=== PATIENT | female | born 1985 | race Caucasian/White ===

== ENCOUNTER 2016-09-16 11:00 | Outpatient (RCR) | payer BC, MEDICARE ==
[~2016-09-16 11:00] MED LIST: ACETAMINOPHEN W1 TA6 PO; ACIPHEX20 MG PO; AMOXICILLIN 8751 TAB PO; ATIVAN 0.50.5 MG/TAB PO; ATOMOXETINE; BACTRIM DS 8001 TAB PO; CARDI-OMEGA1000 MG PO; COLACE 100100 MG/CAP PO; CYMBALTA; DESYREL 100MG100 MG PO; DILAUDID 2MG TAB2 MG; FISH OIL500 MG PO; GLUCOPHAGE500 MG/TAB PO; KLONOPIN 0.5MG0.5 MG PO; LAMICTAL150 MG PO; LORTAB 5/500 501 TAB PO; MAXALT MLT5 MG PO; MEDROL 4MG DOSPA4 MG PO; METOPROLOL25 MG PO; MIRALAX 17GM PK1 PKT PO; MS CONTIN15 MG PO; MULTIPLE VITAMI1 CAP PO; NO HOME MEDICATIONS; NORCO 325 MG-51 TAB PO; NORCO 325 MG-7.1 TAB PO; NUVARING VAG RING VG; OXYCODONE5 M1 PO; PHENERGAN 25 TA25 MG PO; PHENERGAN W/CO120 ML PO; PHENERGAN25 MG RC; PRENATAL1 TA3 PO; PRISTIQ 50 MG T50 MG PO; PROCTOFOAM; PROTONIX 40MG T40 MG PO; TOPAKAX; TOPAKAX PO; TOPAMAX50 MG PO; TRAZODO50 MG PO; VITAMIN B COMPL1 SGL PO; XOPENEX HF0.045 MG/A IH; ZOFRAN 4MG T4 MG/TAB PO; [UNRECOGNIZED DRUG - OTHER] PO
[2016-10-21] MEDS ORDERED: LINZESS145CAP PO (09:09)
[2016-10-21] MEDS ORDERED: ZANAFLEX2 MG PO (09:11)
[2016-12-10] MEDS ORDERED: MAGNESIUM CITR100 MG PO (13:31)
[2016-12-10] MEDS ORDERED: VITAMIN D1000 IU PO (13:31)
[2016-12-10] MEDS ORDERED: PHENTERMINE15 MG PO (14:05)
[2016-12-24] MEDS ORDERED: FASTIN30 MG PO (13:43)
== END 2016-09-17 | disposition still patient (30) ==
LOC: MKS.ESL.PT
DX: S56.912D Strain of unspecified muscles, fascia and tendons at forearm level, left arm, subsequent encounter (principal); X58.XXXD Exposure to other specified factors, subsequent encounter; Y93.41 Activity, dancing
CPT/HCPCS: G8978-GP; G8979-GP

== ENCOUNTER → 2016-10-21 | Outpatient (CLI) | payer BC, MEDICARE ==
[~2016-10-21] VITALS: Ht 152.4 cm; Wt 74.8 kg
[~2016-10-21] MED LIST changes: +ALEVE 220MG220 MG PO; +ANUSOL HC CREAM30 GM TP; +ATARAX 25MG25 MG/TAB PO; +BELSOMRA10 MG PO; +BRINTELLIX5 PO; +DESYREL 50MG50 MG PO; +FASTIN30 MG PO; +LINZESS145CAP PO; +MAGNESIUM CITR100 MG PO; +PHENTERMINE15 MG PO; +STRATTERA 40MG40 MG PO; +VITAMIN D1000 IU PO; +ZANAFLEX2 MG PO; +ZYRTEC 10MG10 MG PO
[2016-10-21 09:12] VITALS: BP 126/79; PULSE 85
[2016-10-21 12:26] VITALS: BP 126/79; PULSE 85
== END ==
LOC: LIGHT 10-07 15:26
DX: F50.89 Other specified eating disorder (principal); F33.8 Other recurrent depressive disorders; E66.09 Other obesity due to excess calories; E28.2 Polycystic ovarian syndrome; Z68.32 Body mass index [BMI] 32.0-32.9, adult

== ENCOUNTER → 2016-10-28 | Outpatient (CLI) | payer BC, MEDICARE | LOC: BHSO 11:22 | DX: F33.1 Major depressive disorder, recurrent, moderate (principal) ==

== ENCOUNTER 2016-11-10 10:45 | Outpatient (RCR) | payer BC, MEDICARE ==
[~2016-11-10 10:45] MED LIST changes: -ALEVE 220MG220 MG PO; -ANUSOL HC CREAM30 GM TP; -ATARAX 25MG25 MG/TAB PO; -BELSOMRA10 MG PO; -BRINTELLIX5 PO; -DESYREL 50MG50 MG PO; -FASTIN30 MG PO; -MAGNESIUM CITR100 MG PO; -PHENTERMINE15 MG PO; -STRATTERA 40MG40 MG PO; -VITAMIN D1000 IU PO; -ZYRTEC 10MG10 MG PO
[2016-12-10] MEDS ORDERED: MAGNESIUM CITR100 MG PO (13:31)
[2016-12-10] MEDS ORDERED: VITAMIN D1000 IU PO (13:31)
[2016-12-10] MEDS ORDERED: PHENTERMINE15 MG PO (14:05)
[2016-12-24] MEDS ORDERED: FASTIN30 MG PO (13:43)
== END 2016-11-11 11:41 | disposition home or self-care (01) ==
LOC: MKS.ESL.PT 10:45
DX: M25.822 Other specified joint disorders, left elbow (principal)
CPT/HCPCS: G8978-GP; G8979-GP; G8980-GP

== ENCOUNTER 2016-11-17 16:12 | Emergency (ER) | payer BC, MEDICARE ==
[~2016-11-17] VITALS: Ht 152.4 cm; Wt 75.0 kg
[2016-11-17 16:14] VITALS: TEMP 98.7
[2016-11-17] MEDS ORDERED: STRATTERA 40MG40 MG PO (16:36)
[2016-11-17] MEDS ORDERED: NORCO 325 MG-51 TAB PO ×2 (16:37→19:33)
[2016-11-17] MEDS ORDERED: BELSOMRA10 MG PO (16:37)
[2016-11-17] MEDS ORDERED: BRINTELLIX5 PO (16:37)
[2016-11-17 17:04] LABS: BASO % 0.1 % (0.0-2.0); EOS # 0.1 (0.0-0.7); EOS % 0.8 % (0-4.0); GRAN # 4.8 (1.4-6.5); GRAN % 66.9 % (42.2-75.2); HEMOGLOBIN 14.1 g/dl (12.5-16.0); LYMPH # 1.8 (1.2-3.4); LYMPH % 25.3 % (20.0-51.0); MEAN CELL VOLUME 87 fl (80.0-100.0); MEAN CORPUSCULAR HEMOGLOBIN 29 pg (27.0-31.0); MEAN CORPUSCULAR HGB CONC 34 g/dl (33.0-37.0); MEAN PLATELET VOLUME 10.5 fl (7.4-10.4); MONO # 0.5 (0.1-0.6); MONO % 6.5 % (1.7-9.3); PLATELET COUNT 197 K/mm3 (130-400); RED BLOOD COUNT 4.85 M/mm3 (4.10-5.30); WHITE BLOOD COUNT 7.2 K/mm3 (4.8-10.8)
[2016-11-17 17:08] LABS: PH 6 (5-8); URINE APPEARANCE Hazy; URINE BACTERIA None Seen /hpf; URINE BILIRUBIN Negative (NEGATIVE); URINE BLOOD Negative (NEGATIVE); URINE COLOR Yellow; URINE GLUCOSE Negative (NEGATIVE); URINE KETONE Negative (NEGATIVE); URINE RBC 0-2 /hpf; URINE UROBILINOGEN Negative (NEGATIVE); URINE WBC 0-2 /hpf
[2016-11-17 17:20] LABS: ADJUSTED CALCIUM 9.2 mg/dL (8.4-10.2); ALANINE AMINOTRANSFERASE 33 U/L (9-52); ALBUMIN 4.3 gm/dL (3.5-5.0); ALKALINE PHOSPHATASE 61 U/L (50-136); ANION GAP 13 mmol/L (7-16); BILIRUBIN,TOTAL 0.8 mg/dL (0.0-1.0); BLOOD UREA NITROGEN 12 mg/dL (7-17); C-REACTIVE PROTEIN < 0.5 mg/dL (0.0-0.9); CALCIUM 9.4 mg/dL (8.4-10.2); CARBON DIOXIDE 23 mmol/L (22-30); CHLORIDE 103 mmol/L (98-107); CREATININE, serum 0.68 mg/dL (0.52-1.25); GLUCOSE 112 mg/dL (74-106); LIPASE 29 U/L (23-300); POTASSIUM 3.8 mmol/L (3.4-5.0); SODIUM 138 mmol/L (137-145); TOTAL PROTEIN 7.5 gm/dL (6.4-8.2)
[2016-11-17] MEDS ORDERED: ZOFRAN 4MG T4 MG/TAB PO (19:33)
[2016-11-17 19:44] VITALS: BP 120/82; PULSE 99
[2016-12-10] MEDS ORDERED: VITAMIN D1000 IU PO (13:31)
[2016-12-10] MEDS ORDERED: MAGNESIUM CITR100 MG PO (13:31)
[2016-12-10] MEDS ORDERED: PHENTERMINE15 MG PO (14:05)
[2016-12-24] MEDS ORDERED: FASTIN30 MG PO (13:43)
== END 2016-11-17 19:44 | disposition home or self-care (01) ==
LOC: COL.ER 16:12
PROVIDERS: Emergency Medicine
DX: N83.201 Unspecified ovarian cyst, right side (principal); R10.31 Right lower quadrant pain; Q79.6 Ehlers-Danlos syndromes
CPT/HCPCS: J1170; J2405; J7030; Q9967

== ENCOUNTER → 2016-12-01 | Outpatient (CLI) | payer BC, MEDICARE ==
[~2016-12-01] MED LIST changes: +ALEVE 220MG220 MG PO; +ANUSOL HC CREAM30 GM TP; +ATARAX 25MG25 MG/TAB PO; +BELSOMRA10 MG PO; +BRINTELLIX5 PO; +DESYREL 50MG50 MG PO; +FASTIN30 MG PO; +MAGNESIUM CITR100 MG PO; +PHENTERMINE15 MG PO; +STRATTERA 40MG40 MG PO; +VITAMIN D1000 IU PO; +ZYRTEC 10MG10 MG PO
== END ==
LOC: BHSO 09:07
DX: F33.41 Major depressive disorder, recurrent, in partial remission (principal)

== ENCOUNTER → 2016-12-10 | Outpatient (CLI) | payer BC, MEDICARE ==
[~2016-12-10] VITALS: Ht 152.4 cm; Wt 73.9 kg
[2016-12-10 13:21] VITALS: BP 134/71; PULSE 96
== END ==
LOC: LIGHT 11-02 12:31
DX: F50.81 Binge eating disorder (principal); F33.8 Other recurrent depressive disorders; E66.8 Other obesity; Z68.31 Body mass index [BMI] 31.0-31.9, adult; Z90.2 Acquired absence of lung [part of]; Z90.49 Acquired absence of other specified parts of digestive tract

== ENCOUNTER → 2016-12-11 | Outpatient (CLI) | payer BC, MEDICARE | LOC: LIGHT 09:00 | DX: F50.81 Binge eating disorder (principal); F33.8 Other recurrent depressive disorders; E66.09 Other obesity due to excess calories; Z68.31 Body mass index [BMI] 31.0-31.9, adult; E28.2 Polycystic ovarian syndrome ==

== ENCOUNTER → 2016-12-28 | Outpatient (CLI) | payer BC, MEDICARE ==
[~2016-12-28] VITALS: Ht 152.4 cm; Wt 73.3 kg
== END ==
LOC: LIGHT 09:45
DX: Z53.9 Procedure and treatment not carried out, unspecified reason (principal)

== ENCOUNTER → 2017-01-01 | Outpatient (CLI) | payer BC, MEDICARE | LOC: BHSO 10:05 | DX: F33.42 Major depressive disorder, recurrent, in full remission (principal) ==

== ENCOUNTER 2017-01-06 11:00 | Outpatient (RCR) | payer BC, MEDICARE ==
[~2017-01-06 11:00] MED LIST changes: -ALEVE 220MG220 MG PO; -ANUSOL HC CREAM30 GM TP; -ATARAX 25MG25 MG/TAB PO; -DESYREL 50MG50 MG PO; -ZYRTEC 10MG10 MG PO
[2017-02-04] MEDS ORDERED: ZYRTEC 10MG10 MG PO (11:17)
[2017-03-02] MEDS ORDERED: ALEVE 220MG220 MG PO (19:56)
[2017-03-02] MEDS ORDERED: ATARAX 25MG25 MG/TAB PO (19:57)
[2017-03-02] MEDS ORDERED: DESYREL 50MG50 MG PO (20:00)
[2017-03-02] MEDS ORDERED: MEDROL 4MG DOSPA4 MG PO (21:40)
[2017-03-17] MEDS ORDERED: ANUSOL HC CREAM30 GM TP (23:25)
== END 2017-03-21 | disposition still patient (30) ==
LOC: MKS.ESL.PT
DX: M79.7 Fibromyalgia (principal)
CPT/HCPCS: G0283-GP; G8978-GP; G8979-GP

== ENCOUNTER → 2017-02-04 | Outpatient (CLI) | payer BC, MEDICARE ==
[~2017-02-04] VITALS: Ht 152.4 cm; Wt 73.0 kg
[~2017-02-04] MED LIST changes: +ALEVE 220MG220 MG PO; +ANUSOL HC CREAM30 GM TP; +ATARAX 25MG25 MG/TAB PO; +DESYREL 50MG50 MG PO; +ZYRTEC 10MG10 MG PO
[2017-02-04 11:18] VITALS: BP 111/67; PULSE 79
== END ==
LOC: LIGHT 01-14 10:32
DX: F50.81 Binge eating disorder (principal); F33.9 Major depressive disorder, recurrent, unspecified; E66.9 Obesity, unspecified; Z68.31 Body mass index [BMI] 31.0-31.9, adult; Z71.3 Dietary counseling and surveillance; E28.2 Polycystic ovarian syndrome

== ENCOUNTER 2017-03-02 19:31 | Emergency (ER) | payer BC, MEDICARE ==
[~2017-03-02] VITALS: Ht 152.4 cm; Wt 72.7 kg
[~2017-03-02 19:31] MED LIST changes: -ALEVE 220MG220 MG PO; -ANUSOL HC CREAM30 GM TP; -ATARAX 25MG25 MG/TAB PO; -DESYREL 50MG50 MG PO
[2017-03-02 19:34] VITALS: TEMP 98.9
[2017-03-02] MEDS ORDERED: ALEVE 220MG220 MG PO (19:56)
[2017-03-02] MEDS ORDERED: ATARAX 25MG25 MG/TAB PO (19:57)
[2017-03-02] MEDS ORDERED: DESYREL 50MG50 MG PO (20:00)
[2017-03-02 20:19] LABS: BASO % 0.1 % (0.0-2.0); EOS # 0.1 (0.0-0.7); EOS % 1.1 % (0-4.0); GRAN # 4.3 (1.4-6.5); GRAN % 57.7 % (42.2-75.2); HEMATOCRIT 39.8 % (37.0-47.0); HEMOGLOBIN 13.4 g/dl (12.5-16.0); LYMPH # 2.5 (1.2-3.4); LYMPH % 33.8 % (20.0-51.0); MEAN CELL VOLUME 87 fl (80.0-100.0); MEAN CORPUSCULAR HEMOGLOBIN 29 pg (27.0-31.0); MEAN CORPUSCULAR HGB CONC 34 g/dl (33.0-37.0); MEAN PLATELET VOLUME 10.2 fl (7.4-10.4); MONO # 0.5 (0.1-0.6); PLATELET COUNT 227 K/mm3 (130-400); RED BLOOD COUNT 4.58 M/mm3 (4.10-5.30); REDCELL DISTRIBUTION WIDTH-CV 12.8 % (11.5-14.5); WHITE BLOOD COUNT 7.4 K/mm3 (4.8-10.8)
[2017-03-02 21:27] LABS: PH 7 (5-8); SQUAMOUS EPITHELIAL 0-2 /hpf; URINE APPEARANCE Clear; URINE BACTERIA None Seen /hpf; URINE BILIRUBIN Negative (NEGATIVE); URINE BLOOD Negative (NEGATIVE); URINE COLOR Straw; URINE GLUCOSE Negative (NEGATIVE); URINE KETONE Negative (NEGATIVE); URINE RBC 0-2 /hpf; URINE UROBILINOGEN Negative (NEGATIVE); URINE WBC 0-2 /hpf
[2017-03-02] MEDS ORDERED: MEDROL 4MG DOSPA4 MG PO (21:40)
[2017-03-02 22:10] VITALS: BP 114/81; PULSE 93
== END 2017-03-02 22:01 | disposition home or self-care (01) ==
LOC: COL.ER 19:31
PROVIDERS: Family Medicine
DX: M54.5 Low back pain (principal); M54.16 Radiculopathy, lumbar region; Q79.6 Ehlers-Danlos syndromes
CPT/HCPCS: J1885; J2550; J7030

== ENCOUNTER → 2017-03-02 | Outpatient (CLI) | payer BC, MEDICARE | LOC: BHSO 09:04 | DX: F33.42 Major depressive disorder, recurrent, in full remission (principal) ==

== ENCOUNTER 2017-03-17 21:27 | Emergency (ER) | payer BC, MEDICARE ==
[~2017-03-17] VITALS: Ht 152.4 cm; Wt 72.7 kg
[~2017-03-17 21:27] MED LIST changes: +ALEVE 220MG220 MG PO; +ATARAX 25MG25 MG/TAB PO; +DESYREL 50MG50 MG PO
[2017-03-17 21:30] VITALS: BP 130/98; TEMP 99.1
[2017-03-17] MEDS ORDERED: ANUSOL HC CREAM30 GM TP (23:25)
[2017-03-17 23:32] VITALS: PULSE 86
== END 2017-03-17 23:32 | disposition home or self-care (01) ==
LOC: COL.ER 21:27
DX: K64.5 Perianal venous thrombosis (principal); J45.909 Unspecified asthma, uncomplicated; G43.909 Migraine, unspecified, not intractable, without status migrainosus; Q79.6 Ehlers-Danlos syndromes; Z90.49 Acquired absence of other specified parts of digestive tract; Z98.890 Other specified postprocedural states

== ENCOUNTER → 2017-03-25 | Outpatient (CLI) | payer BC, MEDICARE ==
[~2017-03-25] VITALS: Ht 152.4 cm; Wt 70.8 kg
[~2017-03-25] MED LIST changes: +ANUSOL HC CREAM30 GM TP
[2017-03-25 14:55] VITALS: BP 118/77; PULSE 97
== END ==
LOC: LIGHT
DX: F50.81 Binge eating disorder (principal); F33.9 Major depressive disorder, recurrent, unspecified; E66.9 Obesity, unspecified; Z68.30 Body mass index [BMI] 30.0-30.9, adult; Z71.3 Dietary counseling and surveillance; E28.2 Polycystic ovarian syndrome

== ENCOUNTER → 2017-04-08 | Outpatient (CLI) | payer BC, MEDICARE | LOC: COL.RAD 10:30 | DX: Q79.6 Ehlers-Danlos syndromes (principal); M79.604 Pain in right leg ==

== ENCOUNTER → 2017-05-06 | Outpatient (CLI) | payer BC, MEDICARE ==
[~2017-05-06] VITALS: Ht 153.7 cm; Wt 73.3 kg
[2017-05-06 11:36] VITALS: BP 114/70; PULSE 80
== END ==
LOC: LIGHT 11:27
DX: F50.81 Binge eating disorder (principal); F33.9 Major depressive disorder, recurrent, unspecified; E66.9 Obesity, unspecified; Z68.31 Body mass index [BMI] 31.0-31.9, adult; Z71.3 Dietary counseling and surveillance; E28.2 Polycystic ovarian syndrome

== ENCOUNTER → 2017-05-25 | Outpatient (CLI) | payer BC, MEDICARE | LOC: BHSO 09:00 | DX: F31.81 Bipolar II disorder (principal) ==

== ENCOUNTER 2017-05-31 16:00 | Outpatient (RCR) | payer BC, MEDICARE ==
[2017-06-10] MEDS ORDERED: PAMELOR 25MG25 MG PO (13:51)
[2017-06-10] MEDS ORDERED: CONTRAVE1 TER PO (18:35)
== END 2017-06-22 ==
LOC: MKS.ESL.PT
DX: M54.41 Lumbago with sciatica, right side (principal); M54.42 Lumbago with sciatica, left side
CPT/HCPCS: G0283-GP; G8978-GP; G8979-GP

== ENCOUNTER → 2017-06-10 | Outpatient (CLI) | payer BC, MEDICARE ==
[~2017-06-10] VITALS: Ht 153.7 cm; Wt 72.1 kg
[~2017-06-10] MED LIST changes: +CONTRAVE1 TER PO; +PAMELOR 25MG25 MG PO
[2017-06-10 13:51] VITALS: BP 110/80; PULSE 80
== END ==
LOC: LIGHT 11:31
DX: F50.81 Binge eating disorder (principal); F33.9 Major depressive disorder, recurrent, unspecified; E66.9 Obesity, unspecified; Z68.30 Body mass index [BMI] 30.0-30.9, adult; Z71.3 Dietary counseling and surveillance; E28.2 Polycystic ovarian syndrome

== ENCOUNTER → 2017-07-08 | Outpatient (CLI) | payer BC, MEDICARE ==
[~2017-07-08] VITALS: Ht 153.7 cm; Wt 68.5 kg
[~2017-07-08] MED LIST changes: +STOOL SOFTENER100 M2 PO
[2017-07-08 11:46] VITALS: BP 104/72; PULSE 60
== END ==
LOC: LIGHT 09:53
DX: F50.81 Binge eating disorder (principal); F33.9 Major depressive disorder, recurrent, unspecified; E66.9 Obesity, unspecified; Z68.29 Body mass index [BMI] 29.0-29.9, adult; Z71.3 Dietary counseling and surveillance; E28.2 Polycystic ovarian syndrome

== ENCOUNTER 2017-07-19 14:56 | Emergency (ER) | payer BC, MEDICARE ==
[~2017-07-19] VITALS: Ht 152.4 cm; Wt 68.6 kg
[~2017-07-19 14:56] MED LIST changes: -STOOL SOFTENER100 M2 PO
[2017-07-19 14:59] VITALS: TEMP 98.8
[2017-07-19 16:04] LABS: COLLECTION METHOD CLEAN CATCH
[2017-07-19 16:11] LABS: PH 6 (5-8); URINE APPEARANCE Hazy; URINE BACTERIA None Seen /hpf; URINE BILIRUBIN Negative (NEGATIVE); URINE BLOOD Negative (NEGATIVE); URINE COLOR Yellow; URINE GLUCOSE Negative (NEGATIVE); URINE KETONE 1+ (NEGATIVE); URINE LEUKOCYTE ESTERASE Negative (NEGATIVE); URINE PROTEIN(semi-quant) Negative (NEGATIVE); URINE RBC 0-2 /hpf; URINE UROBILINOGEN Negative (NEGATIVE); URINE WBC 0-2 /hpf
[2017-07-19 16:26] LABS: BASO % 0.1 % (0.0-2.0); EOS % 0.6 % (0-4.0); GRAN % 69.5 % (42.2-75.2); HEMATOCRIT 43.1 % (37.0-47.0); HEMOGLOBIN 14.5 g/dl (12.5-16.0); LYMPH # 1.7 (1.2-3.4); LYMPH % 23.4 % (20.0-51.0); MEAN CELL VOLUME 87 fl (80.0-100.0); MEAN CORPUSCULAR HEMOGLOBIN 29 pg (27.0-31.0); MEAN CORPUSCULAR HGB CONC 34 g/dl (33.0-37.0); MEAN PLATELET VOLUME 10.2 fl (7.4-10.4); MONO # 0.4 (0.1-0.6); MONO % 6.1 % (1.7-9.3); PLATELET COUNT 186 K/mm3 (130-400); RED BLOOD COUNT 4.96 M/mm3 (4.10-5.30); WHITE BLOOD COUNT 7.2 K/mm3 (4.8-10.8)
[2017-07-19 16:40] LABS: ADJUSTED CALCIUM 9.1 mg/dL (8.4-10.2); ALANINE AMINOTRANSFERASE 24 U/L (9-52); ALBUMIN 4.7 gm/dL (3.5-5.0); ALKALINE PHOSPHATASE 80 U/L (50-136); ANION GAP 11 mmol/L (7-16); BILIRUBIN,TOTAL 0.7 mg/dL (0.0-1.0); BLOOD UREA NITROGEN 8 mg/dL (7-17); CALCIUM 9.7 mg/dL (8.4-10.2); CARBON DIOXIDE 22 mmol/L (22-30); CHLORIDE 105 mmol/L (98-107); CREATININE, serum 0.72 mg/dL (0.52-1.25); GLUCOSE 80 mg/dL (74-106); LIPASE 31 U/L (23-300); POTASSIUM 3.8 mmol/L (3.4-5.0); SODIUM 137 mmol/L (137-145); TOTAL PROTEIN 7.4 gm/dL (6.4-8.2)
[2017-07-19 16:50] LABS: TROPONIN-I < 0.012 ng/mL (0.000-0.034)
[2017-07-19 17:18] VITALS: BP 122/82; PULSE 96
== END 2017-07-19 17:19 | disposition home or self-care (01) ==
LOC: COL.ER 14:56
PROVIDERS: Physician Assistant
DX: G43.909 Migraine, unspecified, not intractable, without status migrainosus (principal); R07.89 Other chest pain; Z79.84 Long term (current) use of oral hypoglycemic drugs
CPT/HCPCS: J1885; J2060; J7030

== ENCOUNTER 2017-07-21 10:38 | Emergency (ER) | payer BC, MEDICARE ==
[~2017-07-21] VITALS: Ht 152.4 cm; Wt 68.6 kg
[2017-07-21 10:41] VITALS: BP 133/78; TEMP 98.8
[2017-07-21 11:16] LABS: BASO % 0.2 % (0.0-2.0); EOS # 0.1 (0.0-0.7); EOS % 1.1 % (0-4.0); GRAN # 3.4 (1.4-6.5); GRAN % 63.5 % (42.2-75.2); HEMATOCRIT 40.1 % (37.0-47.0); HEMOGLOBIN 13.4 g/dl (12.5-16.0); LYMPH # 1.6 (1.2-3.4); LYMPH % 29.5 % (20.0-51.0); MEAN CELL VOLUME 88 fl (80.0-100.0); MEAN CORPUSCULAR HEMOGLOBIN 29 pg (27.0-31.0); MEAN CORPUSCULAR HGB CONC 33 g/dl (33.0-37.0); MEAN PLATELET VOLUME 10.3 fl (7.4-10.4); MONO # 0.3 (0.1-0.6); MONO % 5.5 % (1.7-9.3); PLATELET COUNT 201 K/mm3 (130-400); RED BLOOD COUNT 4.57 M/mm3 (4.10-5.30); WHITE BLOOD COUNT 5.3 K/mm3 (4.8-10.8)
[2017-07-21 11:31] LABS: ADJUSTED CALCIUM 9.1 mg/dL (8.4-10.2); ALANINE AMINOTRANSFERASE 26 U/L (9-52); ALBUMIN 4.4 gm/dL (3.5-5.0); ALKALINE PHOSPHATASE 62 U/L (50-136); ANION GAP 8 mmol/L (7-16); BILIRUBIN,TOTAL 0.7 mg/dL (0.0-1.0); BLOOD UREA NITROGEN 9 mg/dL (7-17); C-REACTIVE PROTEIN < 0.5 mg/dL (0.0-0.9); CALCIUM 9.4 mg/dL (8.4-10.2); CARBON DIOXIDE 25 mmol/L (22-30); CHLORIDE 105 mmol/L (98-107); CREATININE, serum 0.71 mg/dL (0.52-1.25); GLUCOSE 122 mg/dL (74-106); POTASSIUM 4.2 mmol/L (3.4-5.0); SODIUM 138 mmol/L (137-145)
[2017-07-21] MEDS ORDERED: STOOL SOFTENER100 M2 PO (11:32)
[2017-07-21 13:58] VITALS: PULSE 94
== END 2017-07-21 13:58 | disposition home or self-care (01) ==
LOC: COL.ER 10:38
PROVIDERS: Nurse Practitioner
DX: G43.909 Migraine, unspecified, not intractable, without status migrainosus (principal); M79.7 Fibromyalgia; Z32.02 Encounter for pregnancy test, result negative; Z79.84 Long term (current) use of oral hypoglycemic drugs
CPT/HCPCS: J1100; J1200; J1885; J2550; J2765; J7030

== ENCOUNTER → 2017-07-22 | Outpatient (CLI) | payer BC, MEDICARE ==
[~2017-07-22] MED LIST changes: +STOOL SOFTENER100 M2 PO
== END ==
LOC: BHSO 09:01
DX: F33.41 Major depressive disorder, recurrent, in partial remission (principal)

== ENCOUNTER 2017-07-23 14:00 | Outpatient (RCR) | payer BC, MEDICARE | END 2017-09-21 | LOC: MKS.ESL.PT | DX: M79.7 Fibromyalgia (principal); M54.5 Low back pain ==

== ENCOUNTER 2018-02-05 19:49 | Emergency (ER) | payer BC, MEDICARE ==
[2018-02-05 19:52] VITALS: BP 129/76; TEMP 98.3
[2018-02-05] MEDS ORDERED: FLONASEALLERGY NS (20:17)
[2018-02-05] MEDS ORDERED: MOBIC15 MG PO (20:17)
[2018-02-05 21:22] VITALS: PULSE 79
== END 2018-02-05 21:23 | disposition home or self-care (01) ==
LOC: COL.ER 19:49
DX: G43.909 Migraine, unspecified, not intractable, without status migrainosus (principal); J45.909 Unspecified asthma, uncomplicated; F32.9 Major depressive disorder, single episode, unspecified; Z79.84 Long term (current) use of oral hypoglycemic drugs; Z79.51 Long term (current) use of inhaled steroids
CPT/HCPCS: J2060

== ENCOUNTER 2018-02-17 12:45 | Outpatient (RCR) | payer MEDICARE, BC ==
[~2018-02-17 12:45] MED LIST changes: +FLONASEALLERGY NS; +MOBIC15 MG PO
[2018-04-25] MEDS ORDERED: BONINE25 MG PO (16:56)
[2018-04-25] MEDS ORDERED: MEDROL 4MG DOSPA4 MG PO (18:06)
== END 2018-04-27 08:24 | disposition home or self-care (01) ==
LOC: MKS.ESL.PT 12:45
DX: M70.61 Trochanteric bursitis, right hip (principal); M76.31 Iliotibial band syndrome, right leg
CPT/HCPCS: G8978-GP; G8979-GP

== ENCOUNTER → 2018-04-19 | Outpatient (CLI) | payer BC, MEDICARE | LOC: BHSO 08:06 | DX: F41.1 Generalized anxiety disorder (principal) | CPT/HCPCS: G0463 ==

== ENCOUNTER 2018-04-25 16:42 | Emergency (ER) | payer BC, MEDICARE ==
[~2018-04-25] VITALS: Ht 152.4 cm; Wt 74.2 kg
[2018-04-25 16:46] VITALS: TEMP 98
[2018-04-25] MEDS ORDERED: BONINE25 MG PO (16:56)
[2018-04-25] MEDS ORDERED: MEDROL 4MG DOSPA4 MG PO (18:06)
[2018-04-25 19:56] VITALS: BP 102/67; PULSE 81
== END 2018-04-25 20:03 | disposition home or self-care (01) ==
LOC: COL.ER 16:42
DX: R42 Dizziness and giddiness (principal); G43.909 Migraine, unspecified, not intractable, without status migrainosus; Z88.1 Allergy status to other antibiotic agents; Z79.84 Long term (current) use of oral hypoglycemic drugs; Z79.51 Long term (current) use of inhaled steroids
CPT/HCPCS: J1885; J3030; J7512

== ENCOUNTER 2018-06-02 13:15 | Outpatient (RCR) | payer BC, MEDICARE ==
[~2018-06-02 13:15] MED LIST changes: +BONINE25 MG PO
[2018-07-07] MEDS ORDERED: PHENTERMINE15 MG PO (14:45)
[2018-07-07] MEDS ORDERED: TOPAMAX 25MG25 M1 PO (14:46)
== END 2018-07-26 | disposition home or self-care (01) ==
LOC: MKS.ESL.PT
DX: R42 Dizziness and giddiness (principal)

== ENCOUNTER → 2018-06-06 | Outpatient (CLI) | payer BC, MEDICARE | LOC: BHSO 08:18 | DX: F33.41 Major depressive disorder, recurrent, in partial remission (principal) | CPT/HCPCS: G0463 ==

== ENCOUNTER → 2018-07-07 | Outpatient (CLI) | payer BC, MEDICARE ==
[~2018-07-07] VITALS: Ht 153.7 cm; Wt 76.4 kg
[~2018-07-07] MED LIST changes: +TOPAMAX 25MG25 M1 PO
[2018-07-07 09:19] VITALS: BP 102/76; PULSE 80
== END ==
LOC: LIGHT 09:00
DX: F32.9 Major depressive disorder, single episode, unspecified (principal); E28.2 Polycystic ovarian syndrome; E66.9 Obesity, unspecified; Z68.32 Body mass index [BMI] 32.0-32.9, adult; Z71.3 Dietary counseling and surveillance
CPT/HCPCS: G0463

== ENCOUNTER → 2018-09-08 | Outpatient (CLI) | payer BC, MEDICARE | LOC: BHSO 08:25 | DX: F33.41 Major depressive disorder, recurrent, in partial remission (principal) | CPT/HCPCS: G0463 ==

== ENCOUNTER 2018-10-31 14:00 | Outpatient (RCR) | payer BC, MEDICARE ==
[2018-11-16] MEDS ORDERED: WELLBUTRIN XL150 MG PO (12:20)
[2018-11-16] MEDS ORDERED: AMERICAINE TP (13:25)
[2018-11-16] MEDS ORDERED: NORCO 325 MG-51 TAB PO (13:25)
[2019-01-03] MEDS ORDERED: MAXALT5 MG PO (17:20)
[2019-01-03] MEDS ORDERED: ATIVAN 0.50.5 MG/TAB PO (17:21)
[2019-01-03] MEDS ORDERED: ADVIL200 MG PO (17:21)
[2019-01-03] MEDS ORDERED: MIRENA52 MG IY (17:22)
== END 2019-01-13 12:51 | disposition home or self-care (01) ==
LOC: MKS.ESL.PT 14:00
DX: M54.5 Low back pain (principal); M25.539 Pain in unspecified wrist

== ENCOUNTER → 2018-11-04 | Outpatient (CLI) | payer BC, MEDICARE | LOC: BHSO 13:20 | DX: F33.1 Major depressive disorder, recurrent, moderate (principal) | CPT/HCPCS: G0463 ==

== ENCOUNTER 2018-11-16 11:56 | Emergency (ER) | payer BC, MEDICARE ==
[~2018-11-16] VITALS: Ht 152.4 cm; Wt 72.7 kg
[2018-11-16 12:02] VITALS: BP 123/78
[2018-11-16] MEDS ORDERED: WELLBUTRIN XL150 MG PO (12:20)
[2018-11-16 13:03] LABS: BASO % 0.6 % (0.0-2.0); EOS # 0.1 (0.0-0.7); EOS % 0.9 % (0-4.0); GRAN # 4.1 (1.4-6.5); GRAN % 63.9 % (42.2-75.2); HEMATOCRIT 41.4 % (37.0-47.0); HEMOGLOBIN 13.7 g/dl (12.5-16.0); LYMPH # 1.8 (1.2-3.4); LYMPH % 27.6 % (20.0-51.0); MEAN CELL VOLUME 91 fl (80.0-100.0); MEAN CORPUSCULAR HEMOGLOBIN 30 pg (27.0-31.0); MEAN CORPUSCULAR HGB CONC 33 g/dl (33.0-37.0); MEAN PLATELET VOLUME 10.3 fl (7.4-10.4); MONO # 0.4 (0.1-0.6); MONO % 6.5 % (1.7-9.3); PLATELET COUNT 249 K/mm3 (130-400); RED BLOOD COUNT 4.56 M/mm3 (4.10-5.30); REDCELL DISTRIBUTION WIDTH-CV 13.2 % (11.5-14.5)
[2018-11-16 13:17] LABS: ALANINE AMINOTRANSFERASE 14 U/L (9-52); ALBUMIN 4.1 gm/dL (3.5-5.0); ALKALINE PHOSPHATASE 61 U/L (50-136); ANION GAP 9 mmol/L (7-16); AST,SGOT 17 U/L (15-37); BILIRUBIN,TOTAL 0.5 mg/dL (0.0-1.0); BLOOD UREA NITROGEN 8 mg/dL (7-17); CALCIUM 9.2 mg/dL (8.4-10.2); CARBON DIOXIDE 26 mmol/L (22-30); CHLORIDE 105 mmol/L (98-107); GLUCOSE 101 mg/dL (74-106); POTASSIUM 3.7 mmol/L (3.4-5.0); SODIUM 140 mmol/L (137-145); TOTAL PROTEIN 6.8 gm/dL (6.4-8.2)
[2018-11-16 13:18] LABS: C-REACTIVE PROTEIN < 0.5 mg/dL (0.0-0.9)
[2018-11-16] MEDS ORDERED: AMERICAINE TP (13:25)
[2018-11-16] MEDS ORDERED: NORCO 325 MG-51 TAB PO (13:25)
[2018-11-16 13:53] LABS: COLLECTION METHOD CLEAN CATCH
[2018-11-16 14:35] VITALS: PULSE 99; TEMP 97.2
[2018-11-16 14:46] LABS: PH 6 (5-8); SQUAMOUS EPITHELIAL None Seen /hpf; URINE APPEARANCE Clear; URINE BACTERIA None Seen /hpf; URINE BILIRUBIN Negative (NEGATIVE); URINE BLOOD Negative (NEGATIVE); URINE COLOR Yellow; URINE GLUCOSE Negative (NEGATIVE); URINE KETONE Negative (NEGATIVE); URINE LEUKOCYTE ESTERASE Negative (NEGATIVE); URINE NITRATE Negative (NEGATIVE); URINE PROTEIN(semi-quant) Negative (NEGATIVE); URINE RBC 0-2 /hpf; URINE UROBILINOGEN Negative (NEGATIVE)
== END 2018-11-16 14:35 | disposition home or self-care (01) ==
LOC: COL.ER 11:56
PROVIDERS: Nurse Practitioner
DX: K64.5 Perianal venous thrombosis (principal); F32.9 Major depressive disorder, single episode, unspecified; F41.9 Anxiety disorder, unspecified; Z90.49 Acquired absence of other specified parts of digestive tract; Z98.890 Other specified postprocedural states
CPT/HCPCS: J2270; J2405; J7030

== ENCOUNTER 2019-01-03 15:59 | Outpatient (CLI) | payer BC, MEDICARE ==
[~2019-01-03] VITALS: Ht 152.4 cm; Wt 76.2 kg
[~2019-01-03 15:59] MED LIST changes: +AMERICAINE TP; +WELLBUTRIN XL150 MG PO
[2019-01-03 17:15] VITALS: BP 107/76; PULSE 91; TEMP 98.2
[2019-01-03] MEDS ORDERED: MAXALT5 MG PO (17:20)
[2019-01-03] MEDS ORDERED: ATIVAN 0.50.5 MG/TAB PO (17:21)
[2019-01-03] MEDS ORDERED: ADVIL200 MG PO (17:21)
[2019-01-03] MEDS ORDERED: MIRENA52 MG IY (17:22)
== END 2019-01-03 17:30 | disposition home or self-care (01) ==
LOC: EUO 15:59
DX: G43.019 Migraine without aura, intractable, without status migrainosus (principal)

== ENCOUNTER 2019-02-07 08:50 | Outpatient (RCR) | payer BC, MEDICARE ==
[~2019-02-07 08:50] MED LIST changes: +ADVIL200 MG PO; +MAXALT5 MG PO; +MIRENA52 MG IY
== END 2019-05-08 | disposition still patient (30) ==
LOC: MKS.ESL.PT
DX: R42 Dizziness and giddiness (principal)

== ENCOUNTER → 2019-02-16 | Outpatient (CLI) | payer BC, MEDICARE | LOC: BHSO 08:34 | DX: F33.41 Major depressive disorder, recurrent, in partial remission (principal) | CPT/HCPCS: G0463 ==

== ENCOUNTER → 2019-03-07 | Outpatient (CLI) | payer BC, MEDICARE | LOC: BHSO 09:11 | DX: F06.32 Mood disorder due to known physiological condition with major depressive-like episode (principal) | CPT/HCPCS: G0463 ==

== ENCOUNTER → 2019-05-30 | Outpatient (CLI) | payer BC, MEDICARE | LOC: BHSO 09:05 | DX: F33.41 Major depressive disorder, recurrent, in partial remission (principal) | CPT/HCPCS: G0463 ==

== ENCOUNTER 2019-06-17 13:38 | Emergency (ER) | payer BC, MEDICARE ==
[~2019-06-17] VITALS: Ht 152.4 cm; Wt 77.3 kg
[2019-06-17 14:02] VITALS: BP 131/77; TEMP 98.5
[2019-06-17 15:48] LABS: COLLECTION METHOD CLEAN CATCH
[2019-06-17 15:55] LABS: BASO % 0.4 % (0.0-2.0); EOS # 0.1 (0.0-0.7); EOS % 1.4 % (0-4.0); GRAN # 5.4 (1.4-6.5); GRAN % 56.6 % (42.2-75.2); HEMATOCRIT 43.6 % (37.0-47.0); HEMOGLOBIN 14.1 g/dl (12.5-16.0); LYMPH # 3.3 (1.2-3.4); MEAN CELL VOLUME 90 fl (80.0-100.0); MEAN CORPUSCULAR HEMOGLOBIN 29 pg (27.0-31.0); MEAN CORPUSCULAR HGB CONC 32 g/dl (33.0-37.0); MEAN PLATELET VOLUME 10.1 fl (7.4-10.4); MONO # 0.7 (0.1-0.6); MONO % 7.1 % (1.7-9.3); PLATELET COUNT 261 K/mm3 (130-400); RED BLOOD COUNT 4.84 M/mm3 (4.10-5.30); REDCELL DISTRIBUTION WIDTH-CV 13.1 % (11.5-14.5)
[2019-06-17 16:04] LABS: ALANINE AMINOTRANSFERASE 15 U/L (9-52); ALBUMIN 4.4 gm/dL (3.5-5.0); ALKALINE PHOSPHATASE 67 U/L (50-136); ANION GAP 7 mmol/L (7-16); AST,SGOT 22 U/L (15-37); BILIRUBIN,TOTAL 0.2 mg/dL (0.0-1.0); BLOOD UREA NITROGEN 8 mg/dL (7-17); CALCIUM 9.1 mg/dL (8.4-10.2); CARBON DIOXIDE 25 mmol/L (22-30); CHLORIDE 108 mmol/L (98-107); CREATININE, serum 0.63 (0.52-1.25); GLUCOSE 83 mg/dL (74-106); POTASSIUM 3.7 mmol/L (3.4-5.0); SODIUM 140 mmol/L (137-145); TOTAL PROTEIN 7.6 gm/dL (6.4-8.2)
[2019-06-17 16:09] LABS: C-REACTIVE PROTEIN < 0.5 mg/dL (0.0-0.9)
[2019-06-17 16:14] LABS: PH 6 (5-8); SQUAMOUS EPITHELIAL 0-2 /hpf; URINE APPEARANCE Clear; URINE BACTERIA Rare /hpf; URINE BILIRUBIN Negative (NEGATIVE); URINE BLOOD Negative (NEGATIVE); URINE COLOR Straw; URINE GLUCOSE Negative (NEGATIVE); URINE KETONE Negative (NEGATIVE); URINE LEUKOCYTE ESTERASE Negative (NEGATIVE); URINE NITRATE Negative (NEGATIVE); URINE PROTEIN(semi-quant) Negative (NEGATIVE); URINE RBC 0-2 /hpf; URINE UROBILINOGEN Negative (NEGATIVE)
[2019-06-17] MEDS ORDERED: NORCO 325 MG-51 TAB PO (17:00)
[2019-06-17] MEDS ORDERED: ZOFRAN ODT4 MG PO (17:00)
[2019-06-17 17:10] VITALS: PULSE 67
== END 2019-06-17 17:10 | disposition home or self-care (01) ==
LOC: COL.ER 13:38
PROVIDERS: Physician Assistant
DX: N63.0 Unspecified lump in unspecified breast (principal); M79.10 Myalgia, unspecified site; R53.83 Other fatigue; F41.9 Anxiety disorder, unspecified; F32.9 Major depressive disorder, single episode, unspecified; G43.909 Migraine, unspecified, not intractable, without status migrainosus; A18.01 Tuberculosis of spine; Z79.1 Long term (current) use of non-steroidal anti-inflammatories (NSAID)
CPT/HCPCS: J1885; J2405; J7030

== ENCOUNTER → 2019-06-27 | Outpatient (CLI) | payer BC, MEDICARE ==
[~2019-06-27] MED LIST changes: +ZOFRAN ODT4 MG PO
== END ==
LOC: BHSO 10:08
DX: F33.42 Major depressive disorder, recurrent, in full remission (principal)
CPT/HCPCS: G0463

== ENCOUNTER → 2019-09-05 | Outpatient (CLI) | payer BC, MEDICARE | LOC: BHSO 09:09 | DX: F33.42 Major depressive disorder, recurrent, in full remission (principal) | CPT/HCPCS: G0463 ==

== ENCOUNTER → 2019-11-06 | Outpatient (CLI) | payer BC, MEDICARE ==
[~2019-11-06] MED LIST changes: +RITALIN LA10 MG; +ZOLOFT 100MG100 MG PO
== END ==
LOC: BHSO 10:28
DX: F33.42 Major depressive disorder, recurrent, in full remission (principal)
CPT/HCPCS: G0463

== ENCOUNTER 2019-12-30 06:20 | Emergency (ER) | payer BC, MEDICARE ==
[~2019-12-30] VITALS: Ht 152.4 cm; Wt 90.9 kg
[2019-12-30 06:22] VITALS: TEMP 98.3
[2019-12-30] MEDS ORDERED: RITALIN LA20 MG PO (06:33)
[2019-12-30] MEDS ORDERED: DESYREL 100MG100 MG PO (06:34)
[2019-12-30] MEDS ORDERED: XOPENEX HF0.045 MG/A IH (06:35)
[2019-12-30] MEDS ORDERED: ALLEGRA 60MG TA60 MG PO (06:36)
[2019-12-30 08:41] VITALS: BP 119/89
[2019-12-30] MEDS ORDERED: LEVAQUIN 750MG750 M1 PO (08:52)
[2019-12-30] MEDS ORDERED: TUSS PO (08:53)
[2019-12-30 08:57] VITALS: PULSE 81
[2019-12-30] MEDS ORDERED: PHENERGAN 25 TA25 MG PO (09:00)
== END 2019-12-30 10:04 | disposition home or self-care (01) ==
LOC: COL.ER 06:20
DX: J20.9 Acute bronchitis, unspecified (principal); J45.909 Unspecified asthma, uncomplicated; Z79.51 Long term (current) use of inhaled steroids

== ENCOUNTER → 2020-03-28 | Outpatient (CLI) | payer BC, MEDICARE ==
[~2020-03-28] MED LIST changes: +ALLEGRA 60MG TA60 MG PO; +LEVAQUIN 750MG750 M1 PO; +RITALIN LA20 MG PO; +TUSS PO
== END ==
LOC: BHSO 10:04
DX: F33.41 Major depressive disorder, recurrent, in partial remission (principal)
CPT/HCPCS: G0463

== ENCOUNTER 2020-08-26 11:20 | Emergency (ER) | payer BC, MEDICARE ==
[~2020-08-26] VITALS: Ht 152.4 cm; Wt 86.4 kg
[2020-08-26 11:34] VITALS: TEMP 97.3
[2020-08-26 12:39] LABS: BASO % 0.5 % (0.0-2.0); EOS % 0.5 % (0-4.0); GRAN # 2.3 (1.4-6.5); GRAN % 53.7 % (42.2-75.2); HEMATOCRIT 40.8 % (37.0-47.0); HEMOGLOBIN 13.3 g/dl (12.5-16.0); LYMPH # 1.4 (1.2-3.4); LYMPH % 34.1 % (20.0-51.0); MEAN CELL VOLUME 88 fl (80.0-100.0); MEAN CORPUSCULAR HEMOGLOBIN 29 pg (27.0-31.0); MEAN CORPUSCULAR HGB CONC 33 g/dl (33.0-37.0); MEAN PLATELET VOLUME 10.4 fl (7.4-10.4); MONO # 0.5 (0.1-0.6); PLATELET COUNT 214 K/mm3 (130-400); RED BLOOD COUNT 4.62 M/mm3 (4.10-5.30); REDCELL DISTRIBUTION WIDTH-CV 14.5 % (11.5-14.5)
[2020-08-26 13:31] VITALS: BP 124/86; PULSE 83
== END 2020-08-26 13:35 | disposition home or self-care (01) ==
LOC: COL.ER 11:20
PROVIDERS: Physician Assistant
DX: U07.1 COVID-19 (principal); Z88.6 Allergy status to analgesic agent; Z88.1 Allergy status to other antibiotic agents; Z88.8 Allergy status to other drugs, medicaments and biological substances
CPT/HCPCS: J1885; J7030

== ENCOUNTER 2020-12-23 17:29 | Emergency (ER) | payer MEDICARE, BC ==
[~2020-12-23] VITALS: Ht 149.9 cm; Wt 95.9 kg
[2020-12-23 17:43] VITALS: TEMP 98.3
[2020-12-23 18:04] LABS: BASO # 0.1 (0.0-0.2); BASO % 0.5 % (0.0-2.0); EOS # 0.1 (0.0-0.7); EOS % 0.9 % (0-4.0); GRAN # 7.4 (1.4-6.5); GRAN % 67.8 % (42.2-75.2); HEMATOCRIT 45.5 % (37.0-47.0); HEMOGLOBIN 14.7 g/dl (12.5-16.0); LYMPH # 2.6 (1.2-3.4); LYMPH % 23.4 % (20.0-51.0); MEAN CELL VOLUME 91 fl (80.0-100.0); MEAN CORPUSCULAR HEMOGLOBIN 29 pg (27.0-31.0); MEAN CORPUSCULAR HGB CONC 32 g/dl (33.0-37.0); MEAN PLATELET VOLUME 9.9 fl (7.4-10.4); MONO # 0.8 (0.1-0.6); MONO % 6.9 % (1.7-9.3); PLATELET COUNT 340 K/mm3 (130-400); RED BLOOD COUNT 5.02 M/mm3 (4.10-5.30); REDCELL DISTRIBUTION WIDTH-CV 13.2 % (11.5-14.5)
[2020-12-23 18:17] LABS: ALANINE AMINOTRANSFERASE 14 U/L (4-34); ALBUMIN 4.6 gm/dL (3.5-5.0); ALKALINE PHOSPHATASE 88 U/L (50-136); ANION GAP 11 mmol/L (7-16); AST,SGOT 23 U/L (15-37); BILIRUBIN,TOTAL < 0.1 mg/dL (0.0-1.0); BLOOD UREA NITROGEN 9 mg/dL (7-17); CALCIUM 9.5 mg/dL (8.4-10.2); CARBON DIOXIDE 20 mmol/L (22-30); CHLORIDE 109 mmol/L (98-107); GLUCOSE 92 mg/dL (74-106); SODIUM 139 mmol/L (137-145); TOTAL PROTEIN 8.7 gm/dL (6.4-8.2)
[2020-12-23 18:20] LABS: ACETAMINOPHEN < 10 ug/mL (10-30); ALCOHOL(ethanol),MEDICAL < 10 mg/dL; SALICYLATE < 1.0 mg/dL
[2020-12-23 19:25] LABS: TRICYCLIC ANTIDEPRESS URINE NEGATIVE
[2020-12-23 22:19] VITALS: BP 129/57; PULSE 80
[2021-04-11] MEDS ORDERED: TOPAMAX 100MG100 M1 PO (10:30)
[2021-04-11] MEDS ORDERED: VALIUM 5MG T5 MG/TAB PO (10:31)
== END 2020-12-23 23:04 | disposition home or self-care (01) ==
LOC: COL.ER 17:29
PROVIDERS: Emergency Medicine
DX: F32.9 Major depressive disorder, single episode, unspecified (principal); Z86.16 Personal history of COVID-19; Z79.51 Long term (current) use of inhaled steroids; Z88.1 Allergy status to other antibiotic agents; Z88.5 Allergy status to narcotic agent; Z88.8 Allergy status to other drugs, medicaments and biological substances
CPT/HCPCS: J7030

== ENCOUNTER → 2021-03-07 | Outpatient (CLI) | payer MEDICARE, BC ==
[~2021-03-07] MED LIST changes: +TOPAMAX 100MG100 M1 PO; +VALIUM 5MG T5 MG/TAB PO
== END ==
LOC: COL.RAD 06:55
DX: H93.13 Tinnitus, bilateral (principal); H53.2 Diplopia

== ENCOUNTER 2021-12-19 08:45 | Outpatient (RCR) | payer MEDICARE, BC ==
[~2021-12-19 08:45] MED LIST changes: +LIDODERM 5% PATC1 EA TP
== END 2022-01-03 | disposition home or self-care (01) ==
LOC: MKS.ESL.PT
DX: M54.50 Low back pain, unspecified (principal); M25.551 Pain in right hip; M25.552 Pain in left hip

== ENCOUNTER → 2022-02-03 | Outpatient (RCR) | payer MEDICARE, BC | LOC: MKS.ESL.PT | DX: M54.9 Dorsalgia, unspecified (principal); M25.551 Pain in right hip; M25.552 Pain in left hip ==

== ENCOUNTER 2022-10-27 02:24 | Emergency (ER) | payer MEDICARE, BC ==
[~2022-10-27] VITALS: Ht 152.4 cm; Wt 77.3 kg
[~2022-10-27 02:24] MED LIST changes: +CEFTIN500 MG PO; +XOPENEX 1.1.25 MG/3 IH; +ZITHROMAX Z PA250 MG PO
[2022-10-27 02:32] VITALS: TEMP 97.5
[2022-10-27 03:13] LABS: BASO % 0.2 % (0.0-2.0); GRAN # 3.6 K/mm3 (1.4-6.5); HEMATOCRIT 39.2 % (37.0-47.0); HEMOGLOBIN 12.8 g/dl (12.5-16.0); LYMPH # 0.5 K/mm3 (1.2-3.4); LYMPH % 12.1 % (20.0-51.0); MEAN CELL VOLUME 90 fl (80.0-100.0); MEAN CORPUSCULAR HEMOGLOBIN 29 pg (27-31); MEAN CORPUSCULAR HGB CONC 33 g/dl (33.0-37.0); MEAN PLATELET VOLUME 10.4 fl (7.4-10.4); MONO # 0.2 K/mm3 (0.1-0.6); MONO % 3.5 % (1.7-9.3); PLATELET COUNT 212 K/mm3 (130-400); RED BLOOD COUNT 4.36 M/mm3 (4.10-5.30); REDCELL DISTRIBUTION WIDTH-CV 12.6 % (11.5-14.5)
[2022-10-27 03:19] LABS: ALANINE AMINOTRANSFERASE 21 U/L (0-55); ALBUMIN 3.9 gm/dL (3.5-5.0); ALKALINE PHOSPHATASE 77 U/L (40-150); ANION GAP 11 mmol/L (7-16); AST,SGOT 15 U/L (5-34); BILIRUBIN,TOTAL 0.2 mg/dL (0.2-1.2); BLOOD UREA NITROGEN 11 mg/dL (7-19); CALCIUM 9.6 mg/dL (8.4-10.2); CARBON DIOXIDE 20 mmol/L (22-29); CHLORIDE 108 mmol/L (98-107); CREATININE, serum 0.76 mg/dL (0.57-1.11); GLUCOSE 159 mg/dL (70-99); POTASSIUM 3.8 mmol/L (3.5-4.5); SODIUM 139 mmol/L (136-145); TOTAL PROTEIN 7.1 gm/dL (6.2-8.1)
[2022-10-27 03:26] LABS: TROPONIN-I < 0.010 ng/mL (0.00-0.033)
[2022-10-27 04:06] VITALS: BP 122/70; PULSE 76
== END 2022-10-27 04:06 | disposition home or self-care (01) ==
LOC: COL.ER 02:24
PROVIDERS: Nurse Practitioner Primary Care
DX: U07.1 COVID-19 (principal); R00.2 Palpitations; R11.0 Nausea; R07.89 Other chest pain; Z73.0 Burn-out
CPT/HCPCS: J1885; J2060

== ENCOUNTER 2022-10-30 14:30 | Emergency (ER) | payer MEDICARE, BC ==
[~2022-10-30] VITALS: Ht 152.4 cm; Wt 77.3 kg
[2022-10-30 14:41] VITALS: TEMP 98
[2022-10-30 15:34] LABS: BASO % 0.1 % (0.0-2.0); EOS % 0.1 % (0.0-4.0); GRAN # 9.8 K/mm3 (1.4-6.5); GRAN % 73.3 % (42.2-75.2); HEMATOCRIT 42.3 % (37.0-47.0); HEMOGLOBIN 13.4 g/dl (12.5-16.0); LYMPH % 14.6 % (20.0-51.0); MEAN CELL VOLUME 90 fl (80.0-100.0); MEAN CORPUSCULAR HEMOGLOBIN 29 pg (27-31); MEAN CORPUSCULAR HGB CONC 32 g/dl (33.0-37.0); MEAN PLATELET VOLUME 10.5 fl (7.4-10.4); MONO # 1.4 K/mm3 (0.1-0.6); MONO % 10.6 % (1.7-9.3); PLATELET COUNT 252 K/mm3 (130-400); REDCELL DISTRIBUTION WIDTH-CV 13.1 % (11.5-14.5)
[2022-10-30 15:50] LABS: ALBUMIN 3.4 gm/dL (3.5-5.0); BILIRUBIN,TOTAL 0.2 mg/dL (0.2-1.2); CALCIUM 8.9 mg/dL (8.4-10.2); CREATININE, serum 0.74 mg/dL (0.57-1.11); TOTAL PROTEIN 6.5 gm/dL (6.2-8.1)
[2022-10-30 16:59] LABS: COLLECTION METHOD CLEAN CATCH
[2022-10-30 17:05] LABS: MUCOUS Present (NOT PRESENT); SQUAMOUS EPITHELIAL None Seen /hpf (0-10); URINE BACTERIA Rare /hpf (NONE SEEN); URINE COLOR Yellow (YELLOW); URINE RBC 0-2 /hpf (0-2)
[2022-10-30 17:06] LABS: URINE APPEARANCE Clear (CLEAR/HAZY); URINE BLOOD Negative (NEGATIVE); URINE GLUCOSE Negative (NEGATIVE); URINE KETONE Negative (NEGATIVE); URINE NITRATE Negative (NEGATIVE); URINE PROTEIN(semi-quant) Negative (NEGATIVE); URINE UROBILINOGEN 0.2 (NEGATIVE)
[2022-10-30 18:06] VITALS: BP 135/93; PULSE 49
== END 2022-10-30 18:10 | disposition home or self-care (01) ==
LOC: COL.ER 14:30
PROVIDERS: Physician Assistant
DX: U07.1 COVID-19 (principal); R00.1 Bradycardia, unspecified; R07.89 Other chest pain; R05.9 Cough, unspecified
CPT/HCPCS: J7030

== ENCOUNTER 2024-03-30 10:47 | Emergency (ER) | payer MEDICARE, BC ==
[~2024-03-30] VITALS: Ht 152.4 cm; Wt 84.1 kg
[~2024-03-30 10:47] MED LIST changes: +ADDERALL15 MG PO; +AMOXICILLIN 50500 MG PO; +CARAFATE 1GM1 G PO; +DIFLUCAN150 MG PO; +VALTREX1 GM PO
[2024-03-30 10:57] VITALS: TEMP 98
[2024-03-30] MEDS ORDERED: NS 1,000 ML IV ONE (11:15)
[2024-03-30 11:24] LABS: COLLECTION METHOD CLEAN CATCH
[2024-03-30] MEDS ORDERED: Ondansetron 4 MG/2 ML VIAL IV ONE (11:30)
[2024-03-30 11:33] LABS: BASO # 0.1 K/mm3 (0.0-0.2); BASO % 0.6 % (0.0-2.0); EOS # 0.1 K/mm3 (0.0-0.7); EOS % 1.3 % (0.0-4.0); GRAN # 5.1 K/mm3 (1.4-6.5); GRAN % 62.2 % (42.2-75.2); HEMATOCRIT 40.8 % (37.0-47.0); HEMOGLOBIN 13.2 g/dl (12.5-16.0); LYMPH # 2.5 K/mm3 (1.2-3.4); LYMPH % 30.4 % (20.0-51.0); MEAN CELL VOLUME 91 fl (80.0-100.0); MEAN CORPUSCULAR HEMOGLOBIN 29 pg (27-31); MEAN CORPUSCULAR HGB CONC 32 g/dl (33.0-37.0); MEAN PLATELET VOLUME 9.6 fl (7.4-10.4); MONO # 0.5 K/mm3 (0.1-0.6); MONO % 5.4 % (1.7-9.3); PLATELET COUNT 314 K/mm3 (130-400); RED BLOOD COUNT 4.49 M/mm3 (4.10-5.30); REDCELL DISTRIBUTION WIDTH-CV 13.4 % (11.5-14.5)
[2024-03-30 11:37] LABS: URINE APPEARANCE CLOUDY (CLEAR/HAZY); URINE BLOOD NEGATIVE (NEGATIVE); URINE COLOR ORANGE (YELLOW); URINE GLUCOSE NEGATIVE (NEGATIVE); URINE KETONE NEGATIVE (NEGATIVE); URINE NITRATE POSITIVE (NEGATIVE); URINE PROTEIN(semi-quant) 1+ (NEGATIVE)
[2024-03-30 11:46] LABS: ALBUMIN 3.6 g/dL (3.5-5.0); BILIRUBIN,TOTAL 0.3 mg/dL (0.2-1.2); CALCIUM 8.9 mg/dL (8.4-10.2); CREATININE, serum 0.79 mg/dL (0.57-1.11); POTASSIUM 3.8 mEq/L (3.5-4.5); TOTAL PROTEIN 6.7 g/dl (6.2-8.1)
[2024-03-30 12:03] LABS: URINE CALCIUM OXALATE CRYSTAL PRESENT (NOT PRESENT)
[2024-03-30 12:04] LABS: URINE BACTERIA NONE SEEN /hpf (NONE SEEN)
[2024-03-30] MEDS ORDERED: cefTRIAXone 1 G in Water For Injection,Sterile 10 ML IV ONE (12:15)
[2024-03-30] MEDS ORDERED: CEFTIN500 MG PO (12:38)
[2024-03-30 12:59] VITALS: BP 119/91; PULSE 72
== END 2024-03-30 12:59 | disposition home or self-care (01) ==
LOC: COL.ER 10:47
PROVIDERS: Physician Assistant
DX: N39.0 Urinary tract infection, site not specified (principal); R11.0 Nausea; Z88.1 Allergy status to other antibiotic agents
CPT/HCPCS: J0696; J2405; J7030